=== PATIENT | male | born 1995 | race Caucasian/White ===

== ENCOUNTER 2018-03-13 18:07 | Emergency (ER) | payer MEDICAID ==
[~2018-03-13] VITALS: Ht 177.8 cm; Wt 71.2 kg
[2018-03-13 18:51] VITALS: BP 122/63
[2018-03-13] MEDS ORDERED: CEPH500C5 PO (18:58)
== END 2018-03-13 19:18 | disposition home or self-care (01) ==
LOC: ER 18:09
DX: T22.231A Burn of second degree of right upper arm, initial encounter (principal); F17.200 Nicotine dependence, unspecified, uncomplicated; Z79.899 Other long term (current) drug therapy; W86.1XXA Exposure to industrial wiring, appliances and electrical machinery, initial encounter; Y93.89 Activity, other specified; Y92.89 Other specified places as the place of occurrence of the external cause; Y99.8 Other external cause status
CPT/HCPCS: 99283; A6255; A6446

== ENCOUNTER 2018-11-19 18:06 | Emergency (ER) | payer MEDICAID, OTHER ==
[~2018-11-19] VITALS: Ht 170.2 cm; Wt 77.2 kg
[~2018-11-19 18:06] MED LIST: CEPH500C5 PO
[2018-11-19] MEDS ORDERED: ketorolac tromethamine 15mg/ml inj. IM ONE (20:25)
[2018-11-19] MEDS ORDERED: dexamethasone sod phosphate 10mg/ml inj PO STA (20:25)
[2018-11-19 21:19] VITALS: BP 125/65
[2018-11-19] MEDS ORDERED: normal saline 1000ml 1,000 ML IV ONE (21:25)
[2018-11-19] MEDS ORDERED: morphine 4 MG/ML inj SYRINge IV ONE (21:50)
[2018-11-19] MEDS ORDERED: IBUP-1984 PO (22:34)
== END 2018-11-19 23:02 | disposition home or self-care (01) ==
LOC: ER 18:06
DX: G43.909 Migraine, unspecified, not intractable, without status migrainosus (principal)
CPT/HCPCS: 96372; 96374; 99284; J1100; J1885; J2270; J7030

== ENCOUNTER 2019-03-24 11:47 | Observation (INO) | payer MEDICAID, OTHER ==
[~2019-03-24] VITALS: Ht 177.8 cm; Wt 75.0 kg
[2019-03-24] VITALS (17 sets, daily range): BP systolic 110–126; BP diastolic 60–75
--- NOTE | 2019-03-24 12:32 | NUR ---
SBAR TO SAURAV VOGEL.
[2019-03-24] MEDS ORDERED: ringers solution, lacted 1,000 ML IV ONE (12:34)
[2019-03-24] MEDS ORDERED: BUPIVAcaine/PF 2.5 mg/ml (0.25%) 30ml vial ONE (12:38)
[2019-03-24] MEDS ORDERED: LIDOcaine 1% 30ml preserv. free vial ONE (12:38)
[2019-03-24] MEDS ORDERED: cefotetan 1gm/50ml IVPB 50 ML IV ONE ×2 (12:50→13:05)
[2019-03-24] MEDS ORDERED: sevoflurane 250ml liquid IH ONE (13:00)
[2019-03-24] MEDS ORDERED: fentaNYL /PF 50mcg/ml 5ml ampule ONE (13:14)
[2019-03-24] MEDS ORDERED: midazolam 2 mg/2 ml injection ONE (13:14)
--- NOTE | 2019-03-24 13:21 | NUR ---
received report from SAURAV Dietz. patient currently in OR.
[2019-03-24] MEDS ORDERED: ringers solution, lacted 1,000 ML IV SCH (13:49)
[2019-03-24] MEDS ORDERED: meperidine/PF 25mg/ml syringe IV PRN ×3 (13:50)
[2019-03-24] MEDS ORDERED: proCHLORperazine 10 MG/2 ml inj IV PRN (13:50)
[2019-03-24] MEDS ORDERED: ondansetron/PF 4mg/2ml inj IV PRN ×2 (13:50→13:55)
[2019-03-24] MEDS ORDERED: morphine 4 MG/ML inj SYRINge IV PRN ×2 (13:50)
[2019-03-24] MEDS ORDERED: neostigmine methylsulfate 1 MG/ML 10ml vial ONE (13:55)
[2019-03-24] MEDS ORDERED: rocuronium 10mg/ml inj IV ONE (13:55)
[2019-03-24] MEDS ORDERED: HYDROcodone/acetaminophen 5mg/325mg tablet PO PRN (13:55)
[2019-03-24] MEDS ORDERED: glycopyrrolate 0.2mg/ml inj ONE (13:55)
[2019-03-24] MEDS ORDERED: propofol inj 20 ML IV ONE (13:56)
--- NOTE | 2019-03-24 14:20 | NUR ---
Received from OR via BED, accompanied by Anesthesiologist DANIEL and report given by Anesthesiolgist. PT SLEEPY, OXYGENATING WELL ON 10 LPM 02 VIA MASK, NO RESP DISTRESS NOTED. PT DENIES NAUSEA OR PAIN, STATES HE JUST HAS A SCRATCHY THROAT. ICE CHIPS WILL BE OFFERED WHEN PT MORE AWAKE. 3 LARGE BANDAIDS TO ABD LAP SITES CDI. SCDS ON, VSS.
[2019-03-24] MEDS: ketorolac tromethamine 15mg/ml inj. IV SCH ×2 (14:40→19:43)
--- NOTE | 2019-03-24 15:10 | NUR ---
Report called to receiving nurse. Transferred via BED Belongings WITH PT FAMILY. VSS, PAIN LEVEL TRENDING DOWN AFTER MEDS GIVEN. TOLERATING PO FLUIDS WELL. TRANSFERRED TO 3 SURG IN STABLE CONDITION. Special Issues communicated to receiving nurse.
--- NOTE | 2019-03-24 15:10 | NUR ---
Report received from SAURAV Marley. Patient arrived to the floor. VSS, no complaints.
[2019-03-24] MEDS ORDERED: NO HOME MEDS (15:41)
--- NOTE | 2019-03-24 16:00 | NUR ---
patient refused 2RN skin check. stated he has no open areas. none noted on visible skin.
[2019-03-24] MEDS: HYDROcodone/acetaminophen 10/325mg tab PO PRN (16:04)
--- NOTE | 2019-03-24 18:36 | NUR ---
Problems reprioritized. Patient report given, questions answered & plan of care reviewed with SAURAV Smith.
[2019-03-25] VITALS: BP 139/69
[2019-03-25] MEDS: ketorolac tromethamine 15mg/ml inj. IV SCH ×3 (01:29→14:00)
[2019-03-25] MEDS: HYDROcodone/acetaminophen 10/325mg tab PO PRN (05:48)
[2019-03-25 06:19] LABS: BASOPHILS % (AUTO) 0.4 % (0-1); EOSINOPHILS # (AUTO) 0.1 X10'3 (0-0.9); HEMOGLOBIN 14.3 g/dl (14.0-17.9); LYMPHOCYTES # (AUTO) 2.3 X10'3 (1.1-4.8); LYMPHOCYTES % (AUTO) 20.7 % (21-51); MEAN CORPUSCULAR HEMOGLOBIN 30.3 PG (27.0-31.0); MEAN CORPUSCULAR HGB CONC 34.7 g/dL (33.0-36.5); MEAN CORPUSCULAR VOLUME 87.1 FL (78-98); MEAN PLATELET VOLUME 8.1 FL (7.4-10.4); MONOCYTES % (AUTO) 9.4 % (2-12); NEUTROPHILS # (AUTO) 7.5 X10'3 (1.8-7.7); NEUTROPHILS % (AUTO) 68.5 % (42-75); PLATELET COUNT 245 X10'3 (140-440); RED BLOOD COUNT 4.71 X10'6 (4.70-6.10)
[2019-03-25 06:36] LABS: ALBUMIN 3.3 G/DL (3.4-5.0); ANION GAP 7 (8-16); BLOOD UREA NITROGEN 15 MG/DL (7-18); CALCIUM 9.2 MG/DL (8.5-10.1); CHLORIDE 104 MMOL/L (99-107); CREATININE 1.36 MG/DL (0.60-1.10); GLUCOSE 84 MG/DL (70-104); POTASSIUM 4.3 MMOL/L (3.5-5.1); SODIUM 137 MMOL/L (135-145); TOTAL CARBON DIOXIDE 26.3 MMOL/L (24-32); eGFR 66 ML/MIN
[2019-03-25 07:15] VITALS: BP 99/60
[2019-03-25 11:41] VITALS: BP 105/57
[2019-03-25] MEDS ORDERED: ACET-812 PO (12:50)
--- NOTE | 2019-03-25 13:55 | NUR ---
PATIENT DISCHARGED HOME WITH GIRLFRIEND. IV REMOVED. ALL BELONGINGS TAKEN FROM ROOM. STABLE AND APPROPRIATE. DISCHARGE INSTRUCTIONS GIVEN AND REVIEWED WITH PATIENT, ALL QUESTIONS ANSWERED.
== END 2019-03-25 14:00 | disposition home or self-care (01) ==
LOC: ER 11:48 → SUR 3N 12:49
PROVIDERS: ADMIT Surgery; ATTEND Surgery
DX: K35.80 Unspecified acute appendicitis (principal)
CPT/HCPCS: 36415; 44970; 80048; 85025; 87070; 96374; 96376; 99284; G0378; J1885; J2175; J2250; J2704; J2710; J3010; J3490; J7030; A7000; J7120

== ENCOUNTER 2020-05-29 11:18 | Emergency (ER) | payer MEDICAID ==
[~2020-05-29] VITALS: Ht 172.7 cm; Wt 75.0 kg
[~2020-05-29 11:18] MED LIST changes: +ACET-812 PO; -CEPH500C5 PO; +NO HOME MEDS
[2020-05-29 12:04] LABS: BASOPHILS % (AUTO) 0.4 % (0-1); EOSINOPHILS # (AUTO) 0.1 X10'3 (0-0.9); EOSINOPHILS % (AUTO) 0.9 % (0-6); HEMATOCRIT 44.9 % (42.0-52.0); HEMOGLOBIN 15.6 g/dl (14.0-17.9); LYMPHOCYTES # (AUTO) 2.4 X10'3 (1.1-4.8); LYMPHOCYTES % (AUTO) 28.8 % (21-51); MEAN CORPUSCULAR HEMOGLOBIN 30.5 PG (27.0-31.0); MEAN CORPUSCULAR HGB CONC 34.7 g/dL (33.0-36.5); MEAN CORPUSCULAR VOLUME 87.9 FL (78-98); MEAN PLATELET VOLUME 8.2 FL (7.4-10.4); MONOCYTES # (AUTO) 0.6 X10'3 (0-0.9); MONOCYTES % (AUTO) 7.2 % (2-12); NEUTROPHILS # (AUTO) 5.1 X10'3 (1.8-7.7); NEUTROPHILS % (AUTO) 62.7 % (42-75); PLATELET COUNT 259 X10'3 (140-440); RED BLOOD COUNT 5.11 X10'6 (4.70-6.10); RED CELL DISTRIBUTION WIDTH 12.6 % (11.5-14.5); WHITE BLOOD COUNT 8.2 X10'3 (4.5-11.0)
[2020-05-29 12:13] LABS: CLARITY,URINE CLEAR (Clear); COLOR,URINE YELLOW (Yellow); GLUCOSE, URINE NEGATIVE (Neg); KETONES,URINE NEGATIVE (Neg); LEUKOCYTE ESTERASE ,URINE NEGATIVE (Neg); NITRITES, URINE NEGATIVE (Neg); OCCULT BLOOD,URINE NEGATIVE (Neg); PROTEIN,URINE NEGATIVE (Neg); UROBILINOGEN,URINE 0.2 E.U/dL (0.2-1.0)
[2020-05-29 12:19] LABS: ALANINE AMINOTRANSFERASE 27 U/L (12-78); ALBUMIN 4.1 G/DL (3.4-5.0); ALBUMIN/GLOBULIN RATIO 1.2 (1.1-1.5); ALKALINE PHOSPHATASE 64 IU/L (46-116); ANION GAP 7 (8-16); ASPARTATE AMINO TRANSFERASE 17 U/L (10-37); BILIRUBIN,TOTAL 0.3 MG/DL (0.1-1.0); BLOOD UREA NITROGEN 14 MG/DL (7-18); BUN/CREATININE RATIO 13.2 (5.4-32.0); CALCIUM 8.8 MG/DL (8.5-10.1); CHLORIDE 105 MMOL/L (99-107); CREATININE 1.06 MG/DL (0.60-1.10); GLUCOSE 101 MG/DL (70-104); LIPASE 152 U/L (73-393); POTASSIUM 3.8 MMOL/L (3.5-5.1); SODIUM 139 MMOL/L (135-145); TOTAL CARBON DIOXIDE 26.8 MMOL/L (24-32); TOTAL PROTEIN 7.4 G/DL (6.4-8.2); eGFR 87 ML/MIN
[2020-05-29 12:24] LABS: UA COLLECTION TYPE URINAL
[2020-05-29] MEDS ORDERED: normal saline 1000ML IV soln IVB ONE (12:25)
[2020-05-29 13:26] VITALS: BP 127/75
== END 2020-05-29 13:29 | disposition home or self-care (01) ==
LOC: ER 11:19
DX: K59.00 Constipation, unspecified (principal); R10.32 Left lower quadrant pain; R10.31 Right lower quadrant pain; Z90.49 Acquired absence of other specified parts of digestive tract; Z91.013 Allergy to seafood; Z79.899 Other long term (current) drug therapy
CPT/HCPCS: 36415; 74019; 80053; 81003; 83690; 85025; 99284; J7030

== ENCOUNTER 2020-06-02 14:11 | Emergency (ER) | payer MEDICAID ==
[~2020-06-02] VITALS: Ht 172.7 cm; Wt 75.0 kg
[2020-06-02 14:43] LABS: BASOPHILS # (AUTO) 0.1 X10'3 (0-0.2); BASOPHILS % (AUTO) 0.9 % (0-1); EOSINOPHILS # (AUTO) 0.1 X10'3 (0-0.9); EOSINOPHILS % (AUTO) 0.9 % (0-6); HEMATOCRIT 46.4 % (42.0-52.0); LYMPHOCYTES % (AUTO) 30.9 % (21-51); MEAN CORPUSCULAR HEMOGLOBIN 30.1 PG (27.0-31.0); MEAN CORPUSCULAR HGB CONC 34.4 g/dL (33.0-36.5); MEAN CORPUSCULAR VOLUME 87.7 FL (78-98); MEAN PLATELET VOLUME 7.9 FL (7.4-10.4); MONOCYTES # (AUTO) 0.9 X10'3 (0-0.9); MONOCYTES % (AUTO) 9.4 % (2-12); NEUTROPHILS # (AUTO) 5.6 X10'3 (1.8-7.7); NEUTROPHILS % (AUTO) 57.9 % (42-75); PLATELET COUNT 299 X10'3 (140-440); RED BLOOD COUNT 5.29 X10'6 (4.70-6.10); WHITE BLOOD COUNT 9.6 X10'3 (4.5-11.0)
[2020-06-02 14:47] VITALS: BP 115/66
[2020-06-02 14:54] LABS: ALANINE AMINOTRANSFERASE 35 U/L (12-78); ALBUMIN 4.4 G/DL (3.4-5.0); ALBUMIN/GLOBULIN RATIO 1.3 (1.1-1.5); ALKALINE PHOSPHATASE 68 IU/L (46-116); ANION GAP 8 (8-16); ASPARTATE AMINO TRANSFERASE 20 U/L (10-37); BILIRUBIN,TOTAL 0.6 MG/DL (0.1-1.0); BLOOD UREA NITROGEN 18 MG/DL (7-18); BUN/CREATININE RATIO 14.1 (5.4-32.0); CALCIUM 9.2 MG/DL (8.5-10.1); CHLORIDE 105 MMOL/L (99-107); CREATININE 1.28 MG/DL (0.60-1.10); GLUCOSE 92 MG/DL (70-104); POTASSIUM 4.6 MMOL/L (3.5-5.1); SODIUM 143 MMOL/L (135-145); TOTAL PROTEIN 7.8 G/DL (6.4-8.2); eGFR 70 ML/MIN
[2020-06-02] MEDS ORDERED: lactulose 20gm/30ml cup PO ONE (14:55)
== END 2020-06-02 15:02 | disposition home or self-care (01) ==
LOC: ER 14:12
DX: K59.00 Constipation, unspecified (principal); Z90.49 Acquired absence of other specified parts of digestive tract; Z91.013 Allergy to seafood; Z79.899 Other long term (current) drug therapy
CPT/HCPCS: 36415; 74018; 80053; 85025; 99284

== ENCOUNTER 2022-07-31 17:26 | Emergency (ER) | payer MEDICAID ==
[~2022-07-31] VITALS: Ht 172.7 cm; Wt 84.1 kg
[2022-07-31 17:27] VITALS: BP 121/66
== END 2022-07-31 20:24 | disposition home or self-care (01) ==
LOC: ER 17:27
DX: M54.50 Low back pain, unspecified (principal); G89.29 Other chronic pain; M79.605 Pain in left leg; M79.604 Pain in right leg; Z90.89 Acquired absence of other organs; Z91.013 Allergy to seafood; Z79.899 Other long term (current) drug therapy
CPT/HCPCS: 99281